=== PATIENT | female | born 1940 | race Caucasian/White ===

== ENCOUNTER 2016-10-10 10:07 | Outpatient (CLI) ==
[2015-07-17 20:06] VITALS: BMI 27.4
--- NOTE | 2016-10-11 07:32 | MAMMO ---
EXAM: Digital screening mammogram HISTORY: Screening mammogram COMPARISON: Mammogram 10/07/2015 FINDINGS: Bilateral CC and MLO views of the breasts were performed digitally and demonstrate scatte red fibroglandular breast density (25 - 50%). Nodular breast parenchyma is unchanged when compared t o prior. Vascular calcifications and benign left breast calcification are unchanged. Scattered smal ler calcifications bilaterally are unchanged. No new or suspicious nodule or calcification is identi fied. IMPRESSION: No new calcification or suspicious nodule is identified RECOMMENDATION: Annual screening mammogram BIRADS category II: Benign findings
== END 2016-10-10 10:08 | disposition home or self-care (01) ==
LOC: RAD 10:07
PROVIDERS: ATTEND Family Medicine
DX: Z12.31 Encounter for screening mammogram for malignant neoplasm of breast (principal)

== ENCOUNTER 2016-12-27 07:53 | Outpatient (CLI) ==
[2015-07-17 20:06] VITALS: BMI 27.4
--- NOTE | 2016-12-27 13:43 | NM ---
EXAM: Thyroid uptake and scan HISTORY: Hypothyroidism COMPARISON: None. TECHNIQUE: Following the oral administration of 283 microcurie of radioiodine 123, thyroid uptake va lue was obtained 4 hours later, followed by a thyroid scan. FINDINGS: Thyroid uptake value is 5% which is in the low normal range. Thyroid scan showed minimal activity in the right upper pole. Most of the right lobe is not seen secondary to prior surgery. L eft lobe appears somewhat enlarged probably compensatory. There is intense isotope uptake throughou t the left thyroid lobe. IMPRESSION: 1. Thyroid uptake value is in the low normal range. 2. 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 3. Mildly enlarged left thyroid lobe compensatory.
== END 2016-12-27 07:54 | disposition home or self-care (01) ==
LOC: RAD 07:53
PROVIDERS: ATTEND Internal Medicine Endocrinology, Diabetes & Metabolism
DX: E05.90 Thyrotoxicosis, unspecified without thyrotoxic crisis or storm (principal); E89.0 Postprocedural hypothyroidism

== ENCOUNTER 2017-03-28 09:53 | Outpatient (CLI) ==
[2015-07-17 20:06] VITALS: BMI 27.4
--- NOTE | 2017-03-28 10:49 | DI ---
EXAM: Three views of the thoracic spine. History: Thoracic back pain. Findings: No acute fracture or subluxation. Mild to moderate multilevel degenerative disc space na rrowing with a few prominent osteophytes. Degenerative disc disease seen within the visualized cerv ical spine. Minimal anterolisthesis of C4 on C5. Mild S-shaped curvature of the upper thoracic spi ne. Calcifications within the right upper quadrant of the abdomen. Impression: No acute osseous abnormality of the thoracic spine. Degenerative disc disease. Choleli thiasis.
--- NOTE | 2017-03-28 11:05 | US ---
EXAM: Renal ultrasound. History: Right-sided flank pain. Comparison: CT abdomen pelvis 06/01/2016 Technique: Multiple sonographic images through the kidneys were obtained. Color duplex Doppler was used to interrogate vascular flow. Findings: Bladder is not well distended. The right kidney measures 10.1 cm in long length demonstrating normal cortical echogenicity without evidence for hydronephrosis, mass or shadowing calculus. The left kidney measures 10.8 cm in long length demonstrating normal cortical echogenicity without e vidence for hydronephrosis, mass or shadowing calculus. Impression: Sonographically normal kidneys.
--- NOTE | 2017-03-28 11:09 | DI ---
Exam: Five x-rays of the lumbar spine. Reason for exam: Back pain. Comparison: CT of the abdomen pelvis performed 06/01/2016. FINDINGS: There are presumably five [id number] lumbar vertebrae. Multilevel degenerative disease with osteophyte formation and intervertebral body disc space height loss most notably at L4-5 and L5-S1. There is 7.2 mm of anterior listhesis of L4 on L5. Multiple ro unded densities are seen in the right upper quadrant likely gallstones. The vertebral body heights are well maintained. Impression: 1. Multilevel degenerative disease in the thoracolumbar spine with osteophyte formation, interverteb ral body disc space height loss, and facet hypertrophy. 2. Grade 1 anterior listhesis of L4 on L5.
== END 2017-03-28 09:54 | disposition home or self-care (01) ==
LOC: RAD 09:53
PROVIDERS: ATTEND Family Medicine
DX: M54.9 Dorsalgia, unspecified (principal); M89.29 Other disorders of bone development and growth, multiple sites
CPT/HCPCS: 76770

== ENCOUNTER 2017-05-29 07:40 | Outpatient (CLI) ==
[2015-07-17 20:06] VITALS: BMI 27.4
[2017-05-29 08:15] LABS: CREATININE 0.8 mg/dL (0.60-1.30)
--- NOTE | 2017-05-29 09:30 | CT ---
EXAM: CT abdomen with and without contrast. HISTORY: Adrenal mass. Bilateral adrenal nodules. COMPARISON: 06/01/2016. TECHNIQUE: Multiple axial images of the abdomen were obtained prior to and following intravenous adm inistration of 100 mL of Omnipaque 350, low osmolar. Images reformatted in the coronal plane. FINDINGS: The lung bases are clear. Degenerative changes present in the spine. There are multiple calcified stones seen in the gallbladder. The liver, pancreas, and spleen are unr emarkable. A 1 x 0.6 cm right adrenal nodule on noncontrast coronal image 42 has internal density of 6 HU. There is a 1.9 x 1.7 x 1.5 cm nodule of the left adrenal gland which measures minus 6 to -14 HU on noncontrast axial image 18 and coronal image 42. The kidneys demonstrate symmetric enhancement without hydronephrosis. A 2.3 x 1.4 x 1.9 cm left renal mass contains macroscopic fat best demonstr ated on noncontrast axial image 26 with internal density of -40 Hounsfield units. The visualized bowel is normal in caliber without evidence for obstruction or inflammatory process. No free fluid, free air or lymphadenopathy identified. Tiny fat-containing umbilical hernia is prese nt. Atherosclerotic calcifications are present. IMPRESSION: 1. Benign left adrenal myelolipoma. Benign right adrenal adenoma. 2. Left renal angiomyolipoma. 3. Cholelithiasis.
== END 2017-05-29 07:41 | disposition home or self-care (01) ==
LOC: RAD 07:40
PROVIDERS: ATTEND Internal Medicine Endocrinology, Diabetes & Metabolism
DX: D35.00 Benign neoplasm of unspecified adrenal gland (principal)
CPT/HCPCS: 36415; 82565

== ENCOUNTER 2017-10-11 09:09 | Outpatient (CLI) ==
[2015-07-17 20:06] VITALS: BMI 27.4
--- NOTE | 2017-10-12 08:41 | MAMMO ---
EXAM: Digital screening mammogram with 3-D tomosynthesis and CAD HISTORY: Screening mammogram COMPARISON: Mammogram 10/10/2016 and 10/07/2015 FINDINGS: Bilateral CC and MLO views of the breasts were performed digitally and demonstrate heterog eneous breast density. Bilateral benign calcifications are present. The right breast mass is unchang ed dating back to 2015. There are focal segmental calcifications noted in the left central lateral b reast at approximately 3 o'clock. IMPRESSION: Focal segmental calcifications in the left central lateral breast RECOMMENDATION: Diagnostic left breast mammogram and potential ultrasound BIRADS category 0: Needs further evaluation.
== END 2017-10-11 09:10 | disposition home or self-care (01) ==
LOC: RAD 09:09
PROVIDERS: ATTEND Family Medicine
DX: Z12.31 Encounter for screening mammogram for malignant neoplasm of breast (principal)
CPT/HCPCS: 77067

== ENCOUNTER 2017-10-19 08:43 | Outpatient (CLI) ==
[2015-07-17 20:06] VITALS: BMI 27.4
--- NOTE | 2017-10-19 10:06 | MAMMO ---
EXAM: Left digital diagnostic mammogram History: Left breast calcifications. Comparison: Bilateral mammogram 10/11/2017 Findings: Left breast density is heterogeneous. Additional spot magnification views of the left jacklyn ast confirm the presence of segmental pleomorphic calcifications in the upper-outer quadrant of the l eft breast. No dominant masses. Impression: Pleomorphic calcifications within the upper-outer quadrant of the left breast are suspic ious for malignancy. Recommend further evaluation with stereotactic biopsy. BIRADS 4
== END 2017-10-19 08:44 | disposition home or self-care (01) ==
LOC: RAD 08:43
PROVIDERS: ATTEND Family Medicine
DX: R92.8 Other abnormal and inconclusive findings on diagnostic imaging of breast (principal)

== ENCOUNTER 2018-10-25 09:22 | Outpatient (CLI) | payer OTHER ==
[2015-07-17 20:06] VITALS: BMI 27.4
--- NOTE | 2018-10-25 10:25 | MAMMO ---
EXAM: Bilateral digital diagnostic mammogram (2-D and 3-D) History: Left breast cancer. Comparison: Bilateral mammogram 10/11/2017 Findings: MLO and CC views of bilateral breasts demonstrate scattered fibroglandular breast parenchy ma. CAD was reviewed by the radiologist. Tomosynthesis was performed. Interval postsurgical change s of the left breast. There are no suspicious calcifications and no dominant masses. Impression: Benign mammogram. Recommend followup routine screening mammogram in 1 year. BIRADS 2, benign
== END 2018-10-25 09:23 | disposition home or self-care (01) ==
LOC: RAD 09:22
PROVIDERS: ATTEND Specialist
DX: C50.811 Malignant neoplasm of overlapping sites of right female breast (principal)